=== PATIENT | male | born 1945 | race Caucasian/White ===

== ENCOUNTER 2017-02-15 04:46 | Emergency (ER) | payer MEDICARE, OTHER ==
[2017-02-15 04:50] VITALS: BP 158/84
--- NOTE | 2017-02-15 05:16 | PHYS DOC ---
Past History Past Medical History: CAD Additional Past Medical Histor: bladder cancer Alcohol Use: Rarely Drug Use: None Adult General Chief Complaint Chief Complaint: URINARY RETENTION HPI HPI 71-year-old male status post bladder instrumentation with stenting approximately few days out who presents emergency department today with urinary retention. He has pain in the suprapubic region is sharp moderate nonradiating and associated with retention. He denies nausea vomiting or diarrhea. He denies fevers or chills. Review of systems is negative for chest pain shortness of breath fevers cough. All other review of systems is negative unless otherwise noted in history of present illness. Review of Systems Review of Systems SEE ABOVE. Physical Exam Physical Exam Constitutional: Well developed, well nourished, no acute distress, non-toxic appearance. HENT: Normocephalic, atraumatic, bilateral external ears normal, oropharynx moist, no oral exudates, nose normal. [] Eyes: PERRLA, EOMI, conjunctiva normal, no discharge. Neck: Normal range of motion, no tenderness, supple, no stridor. [] Cardiovascular:Heart rate regular rhythm, no murmur Lungs & Thorax: Bilateral breath sounds clear to auscultation [] Abdomen: Soft nontender abdomen without rebound tenderness or guarding present. Negative McBurneys point. Negative Calabrese sign. No ecchymosis present. Skin: Warm, dry, no erythema, no rash. [] Back: No tenderness, no CVA tenderness. Extremities: No tenderness, no cyanosis, no clubbing, ROM intact, no edema. [] Neurologic: Alert and oriented X 3, normal motor function, normal sensory function, no focal deficits noted. Psychologic: Affect normal, judgement normal, mood normal. [] EKG EKG [] Radiology/Procedures Radiology/Procedures [] Course & Med Decision Making Course & Med Decision Making Pertinent Labs and Imaging studies reviewed. (See chart for details) [] 71-year-old male presenting to the emergency department today with urinary retention after bladder instrumentation for screening for bladder cancer. Patient was quite uncomfortable when he came in. Given his history of urinary retention, a Poole catheter was placed which returned 250 mL of blood-tinged urine. Subsequently the patient's pain improved significantly. Urinalysis sent. Urinalysis equivocal. We will follow urine culture and referred to urology. Patient does not desire to return to his urologist so we provided information for another urologist in [facility]. He was then subsequently discharged home. They were to return if their symptoms worsened or if they were concerned for any reason. [id number] discharge instructions and return precautions were given. Patient's questions were answered to their satisfaction. Patient is comfortable plan. Dragon Disclaimer Dragon Disclaimer This chart was dictated in whole or in part using Voice Recognition software in a busy, high-work load, and often noisy Emergency Department environment. It may contain unintended and wholly unrecognized errors or omissions. Departure Departure: Impression: Primary Impression: Urinary retention Additional Impression: Postoperative urinary retention Disposition: HOME, SELF-CARE Condition: STABLE Referrals: OTTONIEL SERNA MD (PCP) TRINA MASTERSON STEVE W MD Patient Instructions: Urinary Retention, Acute, Male Additional Instructions: Thank you for allowing us to participate in your care today. Followup with a urologist in 3-4 days. If you do not have a primary care provider you can ask for a list of our primary care providers. Return to the emergency department you have any new or concerning findings. This should be evaluated by the primary care physician and any necessary consulting services for continued management within a few days after discharge. Return to emergency room if you have any new or concerning symptoms including but not limited to fever, chills, nausea, vomiting, intractable pain, any new rashes, chest pain, shortness of air, uncontrolled bleeding, difficulty breathing, and/or vision loss. Problem Qualifiers CARLOTA TRACY MD February 15, 2017 05:16
[2017-02-15 05:41] LABS: BACTERIA,URINE FEW /HPF (0-FEW); BILIRUBIN,URINE NEG (NEG); CLARITY,URINE HAZY; COLOR,URINE YELLOW; GLUCOSE,URINE NEG (NEG); NITRITE,URINE NEG (NEG); UROBILINOGEN,URINE 0.2 mg/dL (0.2 mg/dL)
[2017-02-15] MEDS ORDERED: HYDROcodone/APAP 5/325MG 1 TAB TABLET PO ONE (05:45)
== END 2017-02-15 05:55 | disposition home or self-care (01) ==
LOC: ER 04:46
DX: N99.89 Other postprocedural complications and disorders of genitourinary system (principal); R33.8 Other retention of urine; I25.10 Atherosclerotic heart disease of native coronary artery without angina pectoris; Z85.51 Personal history of malignant neoplasm of bladder
CPT/HCPCS: 51702; 81001; 87086; 99284-25

== ENCOUNTER 2017-02-25 09:36 | Emergency (ER) | payer MEDICARE, OTHER ==
--- NOTE | 2017-02-25 10:59 | PHYS DOC ---
General Chief Complaint: URINARY RETENTION Stated Complaint: URINARY ISSUES Time Seen by MD: 09:40 Source: patient, old records Exam Limitations: no limitations Problems: History of Present Illness Initial Comments Pt is 71/M to ED c/o Urinary retention/abdominal pain. Pt has h/o bladder cancer, was seen here 02/15 with similar symptoms resolved that day with catheter insertion and bladder drainage. Was d/c with drew, UA was reportedly inconclusive so no abx treatment. Pt states he removed his drew yesterday morning, saw urologist about 1300. Very little urine output at urologist office, 100cc output at home last night no further urine output. Complains of suprapubic pain similar to 02/15 symptoms following bladder scraping/right ureteral stent placement. Sx resolved once catheter placed 250cc urine. Was advised to go to ED with urinary retention recurrance. No fever/chills/n/v, no cp/sob. States he's maintained normal food /liquid intake, also relays he has a painful tooth making it difficult to talk/ eat. vague historian HR 117, BP 90's/50's Timing/Duration: changing over time (2wks) Severity: moderate Modifying Factors: improves with other Associated Symptoms: other Allergies: Coded Allergies: NKMA (Verified Allergy, Unknown, 02/25/17) Uncoded Allergies: CONTRAST (Adverse Reaction, Unknown, 02/15/17) Past Medical History Medical History: other (bladder cancer, urinary retention, CAD, HTN) Surgical History: coronary bypass surgery (4 vessel), other (bladder scraping, colonoscopy, right ureteral stent) Social History Smoker: cigarettes Alcohol: none Drugs: none Review of Systems Constitutional: denies chills, denies fever, malaise Respiratory: denies cough, denies shortness of breath, denies wheezing Cardiovascular: denies chest pain, denies palpitations, denies syncope Gastrointestinal: abdominal pain, denies diarrhea, denies nausea, denies vomiting Genitourinary: see HPI Musculoskeletal: denies back pain, denies joint swelling, denies neck pain Psychiatric/Neurological: denies headache, denies numbness, denies paresthesia Hematologic/Lymphatic: denies blood clots, denies easy bleeding, denies easy bruising Physical Exam General Appearance: moderate distress Eyes: bilateral eye normal inspection, bilateral eye PERRL, bilateral eye EOMI Ear, Nose, Throat: normal ENT inspection (poor dentition, [place]), normal pharynx Neck: non-tender, supple Respiratory: chest non-tender, no respiratory distress, other (coarse BS b/l good air movement) Cardiovascular: normal peripheral pulses, tachycardia Gastrointestinal: soft (ND, BS nl, suprapubic TTP no r/g/mass) Rectal: deferred Back: no CVA tenderness, no vertebral tenderness Extremities: non-tender, normal inspection 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 PHYSICIAN: LARA KUMAR DO REASON: abdominal distension, urinary retension, h/o bladder CA PROCEDURE: CT ABDOMEN PELVIS WO CONTRAST Indication urinary retention. History of bladder malignancy. Axial images through the abdomen and pelvis were obtained. No IV or gastrointestinal contrast was administered. No prior CT imaging of the abdomen or pelvis is available. No significant finding is seen at either lung base. There is a suggested tiny 2 mm nodule in the left lung, image 3 series 2. The liver and spleen appear unremarkable and the gallbladder appears grossly normal. No pancreatic abnormality is seen. There is a right ureteral stent extending from the renal pelvis to the urinary bladder. The adrenal glands appear unremarkable. No hydronephrosis is seen on either side. There is a small, 3 cm, infrarenal abdominal aortic aneurysm. An acute finding in the abdomen is not seen. In the pelvis a catheter is noted extending into the urinary bladder. A moderate amount of fluid persists in the urinary bladder despite the presence of the catheter. Some air is noted compatible with instrumentation. There is thickening of the right lateral wall of the urinary bladder compatible with the stated diagnosis of bladder malignancy. Moderately extensive diverticular disease is seen predominantly centered on the sigmoid colon. Active inflammation is not seen. There are degenerative changes in the lumbar spine with an associated component of spinal stenosis. IMPRESSION: No acute finding seen in the abdomen or pelvis. Right ureteral stent extending from the renal pelvis to the urinary bladder. A catheter is additionally noted extending into the urinary bladder. Thickening of the right lateral wall of the urinary bladder compatible with the provided diagnosis, bladder malignancy. Small abdominal aortic aneurysm. Moderately extensive sigmoid diverticulosis. Small pulmonary nodule at the left lung base Chronic musculoskeletal changes PQRS Compliance Statement: One or more of the following individualized dose reduction techniques were utilized for this examination: 1. Automated exposure control 2. Adjustment of the mA and/or kV according to patient size 3. 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 1215: Pt feeling much better, states his "bladder pain" resolved now primary complaint is his tooth. 1251: Having yet heard back from urology however at this point I think it is unnecessary. Patient is feeling so much better his Drew is working all of his pain symptoms resolved and he's been resting comfortably/sleeping. His vital signs normalized, he remained afebrile heart rate in the 90s systolic pressure in the 130s with no new or negatively changing symptoms. On initial presentation he was tachycardic with systolic pressure in the 90s initially considering sepsis however the patient was in a great deal of pain at that time as well. Now that his pain is controlled his vitals normalized sepsis no longer a consideration. Additionally initially his Drew didn't appear to be working and was causing him a great deal of discomfort however those factors have now resolved and it appears probable bladder spasms for the cause of some of that discomfort. I discussed discharge home with medications and follow-up with urology, patient is agreeable he's been asking to leave to go get his tooth taken care of almost since he got here. We'll discharge home patient understands to call or come back with new or changing symptoms. 1453: NOTE: Pt on-call URO called back and I discussed pt presentation and ED course. He agrees with plan of care, states he will have office staff contact pt to schedule follow up appointment. Departure Time of Disposition: 13:03 Disposition: 01 HOME, SELF-CARE Diagnosis: urinary retention, UTI, dental caries, Patient Instructions: Drew Catheter Care, Adult, Smoking Cessation, Urinary Tract Infection, [id number] Additional Instructions: Rest, no strenuous activity. No driving or operating machinery while sedated with medications. Resume Drew catheter care as before. Stop smoking seek medical assistance if necessary. Prescriptions: Ciprofloxacin 250 mg, Pyridium 100 mg, [place] 5 mg #15 Take medications with food. Please be aware that Pyridium will turn your urine orange, this is normal and will resolve upon cessation of the medication. Follow-up with urology for recheck of symptoms as well as abnormal labs. Follow-up with your primary care physician next week to go over labs and CT findings. Return to the ED with new or changing symptoms. LARA KUMAR DO Feb 25, 2017 10:59
[2017-02-25] MEDS ORDERED: IV NORMAL SALINE 1,000ML 1,000 ML IV SCH (11:00)
[2017-02-25 11:12] LABS: BASO # 0.1 x10^3/uL (0.0-0.2); BASO % 0 % (0-3); EOS # 0.1 x10^3/uL (0.0-0.7); EOS % 1 % (0-3); HEMATOCRIT 35.3 % (39.0-53.0); HEMOGLOBIN 11.6 g/dL (13.0-17.5); LYMPH # 1.3 x10^3/uL (1.0-4.8); LYMPH % 6 % (24-48); MEAN CORPUSCULAR HEMOGLOBIN 28 pg (25-35); MEAN CORPUSCULAR HGB CONC 33 g/dL (31-37); MEAN CORPUSCULAR VOLUME 87 fL (79-100); MONO # 1.6 x10^3/uL (0.0-1.1); MONO % 8 % (0-9); NEUT % 85 % (31-73); PLATELET COUNT 368 x10^3/uL (140-400); RED BLOOD COUNT 4.07 x10^6/uL (4.30-5.70); RED CELL DISTRIBUTION WIDTH 15.1 % (11.5-14.5)
[2017-02-25] MEDS ORDERED: IV NORMAL SALINE 50ML 50 ML ONE (11:19)
[2017-02-25] MEDS ORDERED: cefTRIAXone SODIUM 1 GM VIAL IV ONE (11:19)
[2017-02-25 11:28] LABS: ALBUMIN 2.8 g/dL (3.4-5.0); ALBUMIN/GLOBULIN RATIO 0.6 (1.0-1.7); CALCIUM 8.1 mg/dL (8.5-10.1); CREATININE 1.8 mg/dL (0.7-1.3); GFR 37.4; POTASSIUM 4.3 mmol/L (3.5-5.1); TOTAL BILIRUBIN 0.4 mg/dL (0.2-1.0); TOTAL PROTEIN 7.4 g/dL (6.4-8.2)
[2017-02-25] MEDS ORDERED: ONDANSETRON PF 4 MG/2 ML VIAL. IV ONE (11:30)
--- NOTE | 2017-02-25 11:33 | RAD ---
Indication urinary retention. History of bladder malignancy. Axial images through the abdomen and pelvis were obtained. No IV or gastrointestinal contrast was administered. No prior CT imaging of the abdomen or pelvis is available. No significant finding is seen at either lung base. There is a suggested tiny 2 mm nodule in the left lung, image 3 series 2. The liver and spleen appear unremarkable and the gallbladder appears grossly normal. No pancreatic abnormality is seen. There is a right ureteral stent extending from the renal pelvis to the urinary bladder. The adrenal glands appear unremarkable. No hydronephrosis is seen on either side. There is a small, 3 cm, infrarenal abdominal aortic aneurysm. An acute finding in the abdomen is not seen. In the pelvis a catheter is noted extending into the urinary bladder. A moderate amount of fluid persists in the urinary bladder despite the presence of the catheter. Some air is noted compatible with instrumentation. There is thickening of the right lateral wall of the urinary bladder compatible with the stated diagnosis of bladder malignancy. Moderately extensive diverticular disease is seen predominantly centered on the sigmoid colon. Active inflammation is not seen. There are degenerative changes in the lumbar spine with an associated component of spinal stenosis. IMPRESSION: No acute finding seen in the abdomen or pelvis. Right ureteral stent extending from the renal pelvis to the urinary bladder. A catheter is additionally noted extending into the urinary bladder. Thickening of the right lateral wall of the urinary bladder compatible with the provided diagnosis, bladder malignancy. Small abdominal aortic aneurysm. Moderately extensive sigmoid diverticulosis. Small pulmonary nodule at the left lung base Chronic musculoskeletal changes PQRS Compliance Statement: One or more of the following individualized dose reduction techniques were utilized for this examination: 1. Automated exposure control 2. Adjustment of the mA and/or kV according to patient size 3. Use of iterative reconstruction technique
[2017-02-25 11:37] LABS: COLOR,URINE YELLOW
[2017-02-25 11:38] LABS: BILIRUBIN,URINE NEG (NEG); CLARITY,URINE CLOUDY; GLUCOSE,URINE NEG (NEG); NITRITE,URINE POS (NEG); UROBILINOGEN,URINE 0.2 mg/dL (0.2 mg/dL)
[2017-02-25 11:39] LABS: BACTERIA,URINE MANY /HPF (0-FEW); RBC,URINE >40 /HPF (0-2); SQUAMOUS EPITHELIAL CELL,UR OCC /LPF; WBC,URINE >40 /HPF (0-4)
[2017-02-25 11:45] LABS: % BANDS 9 % (0-9); % LYMPHS 4 % (24-48); % MONOS 7 % (0-10); % SEGS 80 % (35-66); PLT ESTIMATE INCREASED (ADEQUATE)
[2017-02-25 11:47] LABS: TOXIC GRANULATION MOD
[2017-02-25 11:48] LABS: POLYCHROMASIA SLIGHT
[2017-02-25] MEDS ORDERED: ONDANSETRON ODT 4 MG TAB.RAPDIS PO ONE (12:45)
[2017-02-25] MEDS ORDERED: HYDROcodone/APAP 7.5/325MG 1 TAB TABLET PO ONE (12:45)
[2017-02-25] MEDS ORDERED: CIPR250T30 PO (13:08)
[2017-02-25] MEDS ORDERED: PHEN100T82 PO (13:08)
[2017-02-25] MEDS ORDERED: HYDR-971 PO (13:08)
[2017-02-25 13:29] VITALS: BP 135/66
== END 2017-02-25 13:25 | disposition home or self-care (01) ==
LOC: ER 09:36
DX: R33.9 Retention of urine, unspecified (principal); N39.0 Urinary tract infection, site not specified; K02.9 Dental caries, unspecified; I25.810 Atherosclerosis of coronary artery bypass graft(s) without angina pectoris; I10 Essential (primary) hypertension; F17.210 Nicotine dependence, cigarettes, uncomplicated
CPT/HCPCS: 36415; 51702; 74176; 80053; 81001; 82550; 83605; 83880; 84484; 85007; 85027; 87040; 87086; 87205; 96365; 96366; 96375; 99285; J0696; J2405; Q0162; 87186